=== PATIENT | male | born 1950 | race African-American/Black ===

== ENCOUNTER 2023-07-12 20:29 | Emergency (ER) | payer OTHER ==
[~2023-07-12] VITALS: Ht 182.9 cm; Wt 90.0 kg
[2023-07-12] MEDS: METHYLPREDNISOLONE SOD SUCC 125MG/2ML (ACT-O-VIAL) IV ONE (22:26)
[2023-07-12] MEDS: DIPHENHYDRAMINE 50MG/ML VIAL IV ONE (22:26)
[2023-07-12] MEDS: FAMOTIDINE 20MG/2ML VIAL IV ONE (22:46)
[2023-07-12 23:01] VITALS: O2SAT 100
[2023-07-13] MEDS ORDERED: B50 MT (01:00)
[2023-07-13] MEDS ORDERED: FAMO-135 MT (01:00)
[2023-07-13] MEDS ORDERED: P50 MT (01:00)
[2023-07-13 01:13] VITALS: BP 108/63; PULSE 73; RESP 20; TEMP 98.6
== END 2023-07-13 01:50 | disposition home or self-care (01) ==
LOC: ER 20:29
DX: T78.3XXA Angioneurotic edema, initial encounter (principal); T78.1XXA Other adverse food reactions, not elsewhere classified, initial encounter; X58.XXXA Exposure to other specified factors, initial encounter
CPT/HCPCS: 99284; 96374; 96375; J1200; J3490; J2930